=== PATIENT | male | born 1990 | race African-American/Black ===

== ENCOUNTER 2016-10-11 13:33 | Emergency (ER) | payer SELFPAY ==
[~2016-10-11] VITALS: Ht 172.7 cm; Wt 75.0 kg
[2016-10-11 14:14] VITALS: BP 126/71; PULSE 88; RESP 18; TEMP 97.7
[2016-10-11 14:19] VITALS: BP 126/71; PULSE 88; RESP 18; TEMP 97.7; O2SAT 96
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
[2016-10-11 14:57] LABS: AUTOMATED NEUTROPHIL # 3.4 TH/MM3 (1.8-7.7); BASOPHIL % 0.6 % (0.0-2.0); EOSINOPHIL % 0.3 % (0.0-4.0); HEMATOCRIT 45.4 % (39.0-51.0); HEMO FLAGS DIFF FINAL; LYMPHOCYTE # 1.4 TH/MM3 (1.0-4.8); MEAN CORPUSCULAR HEMOGLOBIN 30.6 PG (27.0-34.0); MEAN CORPUSCULAR HGB CONC 33.6 % (32.0-36.0); MONO % 11.7 % (0.0-8.0); NEUT % 61.4 % (16.0-70.0); PLATELET COUNT 194 TH/MM3 (150-450); WHITE BLOOD COUNT 5.5 TH/MM3 (4.0-11.0)
[2016-10-11 15:12] LABS: ANION GAP 10 MEQ/L (5-15); BICARBONATE 23.1 MEQ/L (21.0-32.0); BLOOD UREA NITROGEN 9 MG/DL (7-18); CHLORIDE 103 MEQ/L (98-107); GLOMERULAR FILTRATION RATE 119 ML/MIN (>89); POTASSIUM 3.8 MEQ/L (3.5-5.1); SODIUM (NA) 136 MEQ/L (136-145)
[2016-10-11 16:47] LABS: AMPHETAMINE, URINE NEG (NEG); BARBITURATES, URINE NEG (NEG); COCAINE, URINE NEG (NEG)
[2016-10-11 18:05] VITALS: BP 152/83; PULSE 84; RESP 18; O2SAT 99
== END 2016-10-11 19:01 | disposition home or self-care (01) ==
LOC: NEPE 13:33
DX: G40.909 Epilepsy, unspecified, not intractable, without status epilepticus (principal)
CPT/HCPCS: 80048; 80307; 85025; 99283

== ENCOUNTER 2017-02-11 18:16 | Emergency (ER) | payer OTHER ==
[~2017-02-11] VITALS: Ht 182.9 cm; Wt 82.0 kg
[2017-02-11 18:20] VITALS: BP 107/51; PULSE 89; RESP 20; TEMP 98.3; O2SAT 92
[2017-02-11] MEDS ORDERED: SODIUM CHLOR 0.9% 1000 ML INJ 1,000 ML IV ONE (18:45)
[2017-02-11 18:59] LABS: AUTOMATED NEUTROPHIL # 3.6 TH/MM3 (1.8-7.7); BASOPHIL % 0.4 % (0.0-2.0); EOSINOPHIL % 0.1 % (0.0-4.0); HEMATOCRIT 43.4 % (39.0-51.0); HEMO FLAGS DIFF FINAL; LYMPH % 37.6 % (9.0-44.0); LYMPHOCYTE # 2.4 TH/MM3 (1.0-4.8); MEAN CELL VOLUME 87.1 FL (80.0-100.0); MEAN CORPUSCULAR HEMOGLOBIN 30.3 PG (27.0-34.0); MEAN CORPUSCULAR HGB CONC 34.8 % (32.0-36.0); MONO % 4.1 % (0.0-8.0); NEUT % 57.8 % (16.0-70.0); PLATELET COUNT 179 TH/MM3 (150-450); RED BLOOD COUNT 4.99 MIL/MM3 (4.50-5.90); RED CELL DISTRIBUTION WIDTH 12.4 % (11.6-17.2); WHITE BLOOD COUNT 6.3 TH/MM3 (4.0-11.0)
[2017-02-11 19:17] LABS: ALT (GPT) 36 U/L (12-78)
[2017-02-11 19:20] LABS: ALKALINE PHOSPHATASE 66 U/L (45-117); TOTAL BILIRUBIN ADULT 0.9 MG/DL (0.2-1.0)
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
[2017-02-11 19:28] LABS: ANION GAP 12 MEQ/L (5-15); AST (GOT) 42 U/L (15-37); BICARBONATE 21.4 MEQ/L (21.0-32.0); CHLORIDE 105 MEQ/L (98-107); GLOMERULAR FILTRATION RATE 82 ML/MIN (>89); SODIUM (NA) 138 MEQ/L (136-145)
[2017-02-11 19:29] LABS: ACETAMINOPHEN LESS THAN 2.0 MCG/ML (10.0-30.0); BLOOD UREA NITROGEN 6 MG/DL (7-18)
[2017-02-11 19:37] LABS: ALCOHOL 298 MG/DL (0-5)
--- NOTE | 2017-02-11 19:53 | RADRPT ---
EXAM DATE/TIME: 02/11/2017 19:39 [facility] COMPARISON: No previous studies available for comparison. INDICATIONS : Altered mental status. RADIATION DOSE: 32.99 CTDIvol (mGy) MEDICAL HISTORY : Substance abuse. SURGICAL HISTORY : Cardiac catherization. ENCOUNTER: Initial ACUITY: 1 day PAIN SCALE: Non-responsive LOCATION: cranial TECHNIQUE: Multiple contiguous axial images were obtained of the head. Using automated exposure control and adj ustment of the mA and/or kV according to patient size, radiation dose was kept as low as reasonably a chievable to obtain optimal diagnostic quality images. DICOM format image data is available electro nically for review and comparison. FINDINGS: CEREBRUM: The ventricles are normal. There is minimal air in the left cavernous sinus likely related to IV acce ss. No evidence of midline shift, mass lesion, hemorrhage or acute infarction. No extra-axial fluid collections are seen. POSTERIOR FOSSA: The cerebellum and brainstem demonstrate no acute finding. The 4th ventricle is midline. The cerebe llopontine angle is unremarkable. EXTRACRANIAL: The visualized portion of the orbits is intact. SKULL: The calvaria is intact. No evidence of skull fracture. CONCLUSION: No acute intracranial abnormality is identified. Lucas Tadeo MD on February 11, 2017 at 19:50 Board Certified Radiologist. This report was verified electronically.
[2017-02-11 23:45] VITALS: BP 110/65; PULSE 74; RESP 14; O2SAT 97
[2017-02-12 00:45] VITALS: BP 125/65; PULSE 90; RESP 18; O2SAT 100
[2017-02-12 02:22] VITALS: PULSE 85; RESP 14
--- NOTE | 2017-02-22 19:19 | PD ---
Physical Exam Narrative Patient signed out to me by previous provider pending patient becoming clinically sober. Please see their documentation for full H&P. Data Data Orders Orders Complete Blood Count With Diff (02/11/17 18:27) Comprehensive Metabolic Panel (02/11/17 18:27) Alcohol (Ethanol) (02/11/17 18:27) Salicylates (Aspirin) (02/11/17 18:27) Tylenol (Acetaminophen) (02/11/17 18:27) Ct Brain W/O Iv Contrast(Rout) (02/11/17 ) Sodium Chlor 0.9% 1000 Ml Inj (Ns 1000 M (02/11/17 18:45) Restraints Violent (02/11/17 18:58) Labs Laboratory Tests Test 02/11/17 18:45 White Blood Count 6.3 TH/MM3 Red Blood Count 4.99 MIL/MM3 Hemoglobin 15.1 GM/DL Hematocrit 43.4 % Mean Corpuscular Volume 87.1 FL Mean Corpuscular Hemoglobin 30.3 PG Mean Corpuscular Hemoglobin Concent 34.8 % Red Cell Distribution Width 12.4 % Platelet Count 179 TH/MM3 Mean Platelet Volume 9.5 FL Neutrophils (%) (Auto) 57.8 % Lymphocytes (%) (Auto) 37.6 % Monocytes (%) (Auto) 4.1 % Eosinophils (%) (Auto) 0.1 % Basophils (%) (Auto) 0.4 % Neutrophils # (Auto) 3.6 TH/MM3 Lymphocytes # (Auto) 2.4 TH/MM3 Monocytes # (Auto) 0.3 TH/MM3 Eosinophils # (Auto) 0.0 TH/MM3 Basophils # (Auto) 0.0 TH/MM3 CBC Comment DIFF FINAL Differential Comment Blood Urea Nitrogen 6 MG/DL Creatinine 1.30 MG/DL Random Glucose 120 MG/DL Total Protein 8.7 GM/DL Albumin 4.4 GM/DL Calcium Level 8.1 MG/DL Alkaline Phosphatase 66 U/L Aspartate Amino Transf (AST/SGOT) 42 U/L Alanine Aminotransferase (ALT/SGPT) 36 U/L Total Bilirubin 0.9 MG/DL Sodium Level 138 MEQ/L Potassium Level 4.0 MEQ/L Chloride Level 105 MEQ/L Carbon Dioxide Level 21.4 MEQ/L Anion Gap 12 MEQ/L Estimat Glomerular Filtration Rate 82 ML/MIN Salicylates Level LESS THAN 1.7 MG/DL Acetaminophen Level LESS THAN 2.0 MCG/ML Ethyl Alcohol Level 298 MG/DL MDM Supervised Visit with FLAVIA: No Narrative Course Patient was monitored in the emergency departmental until clinically sober. Patient in no obvious distress upon re-evaluation. Patient ambulated without difficulty out of ED at discharge. Diagnosis Primary Impression: Alcohol intoxication Referrals: TRISTAN (Out patient) [facility] Primary Care Physician [facility] Patient Instructions: General Instructions, Alcohol Intoxication (ED) Departure Forms: Tests/Procedures Additional Instruction: Contract safety to your self and others Stop drinking alcohol Stop doing drugs Follow-up with psychiatry Follow-up with primary care provider Follow-up with Tarun Gonzalez/[facility] Return to the emergency department immediately with worsening of symptoms Scripts Unable to Obtain Active Prescriptions or Reported Meds Disposition: 01 DISCHARGE HOME Condition: Stable Thang Blanco Feb 22, 2017 19:19
== END 2017-02-12 07:01 | disposition home or self-care (01) ==
LOC: NEPD 18:16
DX: F10.929 Alcohol use, unspecified with intoxication, unspecified (principal); Y90.8 Blood alcohol level of 240 mg/100 ml or more; F31.9 Bipolar disorder, unspecified; F41.9 Anxiety disorder, unspecified
CPT/HCPCS: 70450; 80053; 80307; 85025; 96360; 96361; 99285; J7030